=== PATIENT | male | born 1950 | race Caucasian/White ===

== ENCOUNTER 2018-02-07 16:00 | Outpatient (RCR) | payer MEDICARE, OTHER ==
--- NOTE | 2017-12-24 15:02 | PT INITIAL EVALUATION ---
MEDICAL DIAGNOSIS: Status post left knee replacement TREATMENT DIAGNOSIS: Same, altered gait DATE OF ONSET: 12/20/17 SUBJECTIVE: Meng Morocho presents to physical therapy status post L knee replacement on December 20, 2017. He reports that he had his hip replaced 3 years ago without any difficulties following. He reports that he has been performing the exercises that he had received from the PT's during his stay in the hospital. He reports that his pain reduces from 5/10 to 3/10 following his exercises. He reports that he has been changing the dressing as needed. He reports that he has one step to get into or out of his house and is currently not having any difficulties with that step. Furthermore, he reports that he currently has pain surrounding the posterior capsule and rates it to be 5/10. He reports that he has minimal discharge from the incision. Pain location is L knee: posterior capsule and described as achy. Pain scale is 5 on a ten point pain scale. Pain is worse with knee flexion and extension ROM and better with elevation with ice. REHAB PROBLEM LIST: Increased Pain Decreased ROM Decreased Strength Decreased Endurance Decreased Balance Decreased Function Decreased ADL's Decreased Mobility Decreased Gait PREVIOUS MEDICAL HISTORY: See EMR OCCUPATION: Retired OBJECTIVE: Incision healing well along with minimal to no discharge with zero signs or symptoms of infection Posture: He demonstrates minimal posture impairments with forward head, B rounded shoulders, increased thoracic kyphosis, and decreased lumbar lordosis. ROM: PROM-AAROM: L knee extension: 5 degrees from 0. L knee flexion: 65 degrees. He demonstrated empty end feels in either direction Strength: Able to initiate quad; however, he demonstrates a significant SLR lag of 15 degrees Palpation: TTP: L knee posterior capsule Mobility: Modified Independent Gait: With FWW, he demonstrated the following mechanics: decreased R step length, demonstrated step to gait with R LE and step through gait with L LE, decreased velocity, decreased B pelvic rotation, and increased stance or double limb stance during the stance phase of gait. Balance: Will assess in the future ASSESSMENT: Meng will benefit from skilled physical therapy addressing the listed impairments to improve function and return to prior level of function. Short Term Goals 1-2 weeks: Pt will demonstrate improvements with L quad contraction to improve function and QOL. 3 weeks: Pt will demonstrate 0-125 degrees of L knee extension to flexion PROM- AROM to improve function and QOL. 6 weeks: Pt will demonstrate improvements with B hip abduction, extension, and flexion strength from baseline to 4+/5 or greater to improve function and QOL. 6 weeks: Pt will demonstrate normal gait mechanics without any AD to improve function and QOL. 6 weeks: Pt will be independent with his home exercise program. Patient's Goals improve motion, walking, and getting back to what he was doing PLAN: Patient to be seen for Manual Therapy/STM/MET Strengthening/condition Range of Motion Spinal Stabilization Work Hardening/Cond Stretching Neuromuscular Re-ed Closed Chain Program Posture/Body mechanics Gait Trg/Balance Trg Home Exercise Program Therapeutic Activities 3x/Week for 6 Weeks If you have any questions, comments, or concerns about this report or plan, please contact me at . Thank you, Oren Jiang, PT, DPT MAURICIOD
--- NOTE | 2018-01-17 17:52 | PT PLAN OF CARE ---
Physician: David Jarvis MD Patient is being seen: 3x/week Therapist: Oren Jiang, PT, DPT Medical Diagnosis: Status post left knee replacement Treatment Diagnosis: Same, altered gait Date of Onset: 12/20/17 Date of Initial Evaluation: 12/23/17 Date patient was last seen: 01/17/18 Number of treatments: 10 Number of cancellations/No shows: 1 INTERVENTIONS: Manual Therapy/STM/MET Strengthening/condition Range of Motion Spinal Stabilization Work Hardening/Cond Stretching Neuromuscular Re-ed Closed Chain Program Posture/Body mechanics Gait Trg/Balance Trg Home Exercise Program Therapeutic Activities GOALS: 1-2 weeks: Pt will demonstrate improvements with L quad contraction to improve function and QOL. Progressing well 3 weeks: Pt will demonstrate 0-125 degrees of L knee extension to flexion PROM- AROM to improve function and QOL. Progressing well 6 weeks: Pt will demonstrate improvements with B hip abduction, extension, and flexion strength from baseline to 4+/5 or greater to improve function and QOL. NM; have not addressed right now will address following full AROM of L knee flexion and extension 6 weeks: Pt will demonstrate normal gait mechanics without any AD to improve function and QOL. MET 6 weeks: Pt will be independent with his home exercise program. Progressing PATIENT'S GOAL: improve motion, walking, and getting back to what he was doing Status of Patient's Goals: Progressing Patient Compliance: Good Prognosis: Excellent Reasons for continuing therapy: This is a progress note for Meng Morocho. He reports that he is doing well. He reports that he is doing his L knee flexion and extension exercises 3-4 times per day. He reports that he is able to perform a full revolution around his bike. He rates his pain to be 2/10. He reports that he feels like the swelling is getting much better along with his walking has improved a lot over the last few weeks. He reports that he has been icing and elevating as often as possible. He continues to progress with his L knee extension and flexion PROM-AROM from baseline to 0-110 degrees PROM and 0-1 -108 degrees AROM, improved quad contraction; however he continues to have 5 degrees of lag, improved gait mechanics with no AD (improved foot clearance, increased velocity, normal B step lengths; however, he continues to lack push off and increased knee flexion during the gait cycle), fully healed incision, increased incisional mobility, improved patella mobility; however, it continues to be moderately limited in the superior and inferior glides and normal accessory mobility of medial to/from lateral, and significant reduction in swelling. We will continue to improve L knee extension and flexion ROM, improve quad strength, reduce swelling, improve gait mechanics, and return to prior level of function. Posture: He demonstrates minimal posture impairments with forward head, B rounded shoulders, increased thoracic kyphosis, and decreased lumbar lordosis. ROM: PROM-AAROM: L knee extension: 0. L knee flexion: 110 degrees. He demonstrated empty end feels in either direction Strength: SLR lag of 5 degrees Special Tests: Mobility: Independent If you have any questions, please contact me at [phone]. Thank you, Oren Jiang, PT, DPT MTDD
[~2018-02-07 16:00] MED LIST: AMIO400T10 PO; ASPI-1471 PO; CAR3.125 PO; ENAL-1 PO; FURO-47 PO; HYDR-385 PO; IBUP200C71 PO; POTA20PA10 PO; PRAV40TA78 PO; SPIR25TA76 PO; WARF-1 PO; WARF5TAB23 PO
--- NOTE | 2018-02-07 16:50 | PT PLAN OF CARE ---
Physician: David Jarvis MD Patient is being seen: 3x/week Therapist: Oren Jiang, PT, DPT Medical Diagnosis: Status post left knee replacement Treatment Diagnosis: Same, altered gait Date of Onset: 12/20/17 Date of Initial Evaluation: 12/23/17 Date patient was last seen: 02/07/18 Number of treatments: 16 Number of cancellations/No shows: 2 INTERVENTIONS: Manual Therapy/STM/MET Strengthening/condition Range of Motion Spinal Stabilization Work Hardening/Cond Stretching Neuromuscular Re-ed Closed Chain Program Posture/Body mechanics Gait Trg/Balance Trg Home Exercise Program Therapeutic Activities GOALS: 1-2 weeks: Pt will demonstrate improvements with L quad contraction to improve function and QOL. MET 3 weeks: Pt will demonstrate 0-125 degrees of L knee extension to flexion PROM- AROM to improve function and QOL. MET 6 weeks: Pt will demonstrate improvements with B hip abduction, extension, and flexion strength from baseline to 4+/5 or greater to improve function and QOL. MET 6 weeks: Pt will demonstrate normal gait mechanics without any AD to improve function and QOL. MET 6 weeks: Pt will be independent with his home exercise program. MET PATIENT'S GOAL: improve motion, walking, and getting back to what he was doing Status of Patient's Goals: [g OPPT.GOALS] Patient Compliance: [g PT.GFPNA] Prognosis: Excellent Reasons for continuing therapy: Reasons for continuing therapy: This is a discharge note for Meng Morocho. He reports that he is doing well. He reports that he is independent within his home exercise program. He denies any L knee pain. He reports that the L knee continues to be stiff and sore in the morning and gets better as the day progresses. He reports that he feels like his walking is back to normal. He has progressed well within PT with the following improvements: increased L knee extension and flexion AROM (0-128 degrees), increased quad contraction (zero quad lag), return to normal with gait mechanics, independence within his HEP, decreased swelling, improved endurance, improved accessory mobility of the incision, and improved balance strategies in all conditions. He has met all of his goals. As a result, he will be discharged from PT to [facility]. Posture: He demonstrates minimal posture impairments with forward head, B rounded shoulders, increased thoracic kyphosis, and decreased lumbar lordosis. ROM: PROM-AAROM: L knee extension: 0. L knee flexion: 128 degrees. He demonstrated empty end feels in either direction Strength: SLR lag of 0 degrees, B LE's: 4+/5 Mobility: Independent If you have any questions, please contact me at [phone]. Thank you, Oren Jiang, PT, DPT MTDD
== END 2018-02-07 18:00 | disposition home or self-care (01) ==
LOC: PT 16:00
PROVIDERS: ATTEND Orthopaedic Surgery Adult Reconstructive Orthopaedic Surgery
DX: Z47.1 Aftercare following joint replacement surgery (principal); Z96.652 Presence of left artificial knee joint; R26.89 Other abnormalities of gait and mobility; M25.562 Pain in left knee; Z96.649 Presence of unspecified artificial hip joint
CPT/HCPCS: 97162

== ENCOUNTER 2018-05-09 15:00 | Outpatient (RCR) | payer MEDICARE, OTHER ==
[2018-02-18 16:01] VITALS: BP 102/74
[2018-02-18 16:02] VITALS: BP 112/74
--- NOTE | 2018-02-18 16:30 | CARDIAC REHAB PLAN OF CARE ---
Physician: Raudel Hartmann MD Patient is being seen: Pam Bates Medical Diagnosis: STEMI; A-frib; VSD; CHF (Systolic) Date of Initial Evaluation: 02/18/2018 INTERVENTIONS: SHORT TERM GOALS Short Term Goals Due Date: 03/20/18 Short Term Goals: Patient comes to cardiac rehab having experienced a STEMI in 2013. Following his cardiac event he had a VSD that was fixed with open heart surgery. In 2015 he was fitted with a pacemaker/defibrillator. He presently has atrial fibrillation and systolic chronic heart failure. Reports also state him having CKD (stage III) and COPD which do not appear to limit his physical activity or role in this program. Patient is currently exercising on his own, progressing towards a total of 2 miles throughout the day (in 5 minute bouts) on his stationary bike. Our goal for the next month is to encourage this at-home physical activity while adding additional activity in our supervised setting. In the next month it is our goal to increase exercise tolerance first by increasing duration of continuous movement. Currently, he exercises for a continuous 5 minutes at a time. We hope to increase this to a total of at least 25 continuous minutes on the airdyne bike, 10 on the treadmill, and 7 on the elliptical. During exercise his heart rate is irregular and difficult to maintain in a certain range (dependent on the a-fib). Ideally he would aim his HR between 95- 100bpm to start. However, a better way to identify intensity will be by using the RPE scale. He should exercise at an RPE between 3-4 as long as his SPO2 remains above 88% We also hope to improve muscular strength by progressing from the current 6# weights to 8# weights. Short Term Goals Met: Short Term Goals Not Met Due To: DETENTION GOALS Retirement Goal Due Date: 04/20/18 Refrigerating Technician Goals: Over the next two months, half-way goals include achieving the recommended 150 minutes/week of moderate intensity continuous exercise at cardiac rehab. By the end of the second month he should be maintaining an RPE between 3-5 with SPO2 above 88%. Along with duration of exercise, we also hope to increase intensity. This will be done by increasing incline on the treadmill (currently 1.5%) with a goal of 5%, RPM's on the airdyne (currently 35rpm) with a goal of 50rpm, and level on the elliptical (currently L1) with a goal of L3. Retirement Goals Met: Retirement Goals Not Met Due To: PATIENT'S GOALS Patient Goals Due Date: 03/20/18 Patient Goals: Through this program the patient hopes to increase overall strength. This includes muscular strength, as well as cardiovascular strength. Currently, his LVEF is 45% and ideally it should be >55%. He would also like to improve his stamina/cardiorespiratory fitness level. Lastly, he would like to gain knowledge/information on how to properly assess the safety of exercise at home and how to gauge where his limitations in respects to cardiovascular safety. Patient Goals Met: Patient Goals Not Met Due To: Cardiac Rehabilitation Plan of Care Comment: Throughout his program we will provide a multi-dimensional care plan for the patient including education, behavior change towards dietary and physical activity, and social support/ motivation. During the program we will monitor the patient via blood pressure, HR, SPO2, and ECG telemetry to ensure safety during exercise. We will use this information to help create an individualized exercise prescription that addresses the patient's needs and goals. We will provide positive encouragement and motivation, and provide guidance to exercise progression so that the patient may receive the best experience during his time in the program. Progression will be a lange factor for this patient, and he has much room for growth in aspects to physical activity and exercise. Little progressions will be made each exercise sessions (whether it be additional time or increased intensity). It is our hopes that small steps will add up in the end to significant changes. ABIGAIL
[2018-02-21 15:19] VITALS: BP 134/76
[2018-02-21 15:20] VITALS: BP 122/82
[2018-02-24 15:19] VITALS: BP 116/70
[2018-02-24 15:20] VITALS: BP 110/76
[2018-03-03 16:34] VITALS: BP_SYST 102; BP_SYST 122; BP_DIAS 64; BP_DIAS 84
[2018-03-07 16:54] VITALS: BP 102/78
[2018-03-07 16:55] VITALS: BP 118/72
[2018-03-10 15:11] VITALS: BP 110/70
[2018-03-10 15:12] VITALS: BP 102/74
[2018-03-14 16:40] VITALS: BP 110/66
[2018-03-14 16:41] VITALS: BP 108/64
[2018-03-17 16:39] VITALS: BP 104/68
[2018-03-17 17:21] VITALS: BP 104/64
[2018-03-19 17:24] VITALS: BP 116/78
[2018-03-19 17:25] VITALS: BP 120/70
--- NOTE | 2018-03-24 12:42 | CARDIAC REHAB PLAN OF CARE ---
Physician: Raudel Hartmann MD Patient is being seen: Pam Bates Medical Diagnosis: STEMI; A-fib; VSD; PM/Defib Date of Initial Evaluation: 02/18/18 Date patient was last seen: 03/19/18 Number of treatments: 10 INTERVENTIONS: SHORT TERM GOALS Short Term Goals Due Date: 04/24/18 Short Term Goals: Patient comes to cardiac rehab having experienced a STEMI in 2013. Following his cardiac event he had a VSD that was fixed with open heart surgery. In 2015 he was fitted with a pacemaker/defibrillator. He presently has atrial fibrillation and systolic chronic heart failure. Reports also state him having CKD (stage III) and COPD which do not appear to limit his physical activity or role in this program. Over the next month our goal will be to continue progressing exercise intensity (aiming for at least 3.5METs on the bike). He will return to using the airdyne bike along side with either the elliptical or treadmill--not the NuStep. He will continue with the same HR range pending the a-fib interference. But will aim for an RPE between 3-4 (as long as his SPO2 remains above 88%). Over the next month it will also be a goal to increase strength training weights to 8lbs. Short Term Goals Met: Patient has met all of the prior mentioned goals. He is currently exercising for 40 total minutes, 30 of which are consecutive on the airdyne bike. He maintains his HR between 90-110bpm on average (variable due to the a-fib).His SPO2 on average keeps at 91% and he has increased his strength training weights from 6lbs to 7lbs.He has maintained his leisure time physical activity at home. Short Term Goals Not Met Due To: Patient has not met the goal of maintaining and RPE between 3-4.He has also for unknown reasons started using the NuStep instead of the treadmill or elliptical. ROTOR PILOT GOALS Fdc Goal Due Date: 04/24/18 Rad Tech Goals: Over the next two months, nursing home goals include achieving the recommended 150 minutes/week of moderate intensity continuous exercise at cardiac rehab. By the end of the second month he should be maintaining an RPE between 3-5 with SPO2 above 88%. Along with duration of exercise, we also hope to increase intensity. This will be done by increasing incline on the treadmill (currently 1.5%) with a goal of 5%, RPM's on the airdyne (currently 35rpm) with a goal of 50rpm, and level on the elliptical (currently L1) with a goal of L3. Fdc Goals Met: Fdc Goals Not Met Due To: PATIENT'S GOALS Patient Goals Due Date: 04/24/18 Patient Goals: Through this program the patient hopes to increase overall strength. This includes muscular strength, as well as cardiovascular strength. Currently, his LVEF is 45% and ideally it should be >55%. He would also like to improve his stamina/cardiorespiratory fitness level. Lastly, he would like to gain knowledge/information on how to properly assess the safety of exercise at home and how to gauge where his limitations in respects to cardiovascular safety. Patient Goals Met: None of the prior mentioned goals have been met. Patient Goals Not Met Due To: No information currently on progression of personal patient goals. Cardiac Rehabilitation Plan of Care Comment: In the next month it will be our goal as a cardiac rehab staff to encourage the patient to increase his exercise intensity. This will include exercise limited to the treadmill, airdyne bike, elliptical, and laps on the track. He will aim for a MET level of at least 3.5 and an RPE between 3-4. We will continue to monitor his HR, BP , ECG, and SPO2 to ensure his safety through exercise. We will further use this information to help individualize his exercise program to his capabilities and personal goals. Lastly, we will help educate him on how to identity exercise safety and intensity on his own for use outside of the rehab facility. ABIGAIL
[2018-04-02 16:00] VITALS: BP 118/80
[2018-04-02 16:01] VITALS: BP 114/80
[2018-04-07 16:24] VITALS: BP_SYST 110; BP_SYST 112; BP_DIAS 72; BP_DIAS 80
[2018-04-16 16:24] VITALS: BP 104/60
[2018-04-16 16:25] VITALS: BP 92/62
[2018-04-18 15:56] VITALS: BP_SYST 106; BP_SYST 110; BP_DIAS 76; BP_DIAS 78
[2018-04-18 16:06] VITALS: BP 106/78
[2018-04-21 16:33] VITALS: BP_SYST 128; BP_SYST 96; BP_DIAS 68; BP_DIAS 82
[2018-04-25 17:06] VITALS: BP_SYST 104; BP_SYST 98; BP_DIAS 64; BP_DIAS 72
[2018-04-28 16:24] VITALS: BP 104/70
[2018-04-28 16:25] VITALS: BP 102/64
--- NOTE | 2018-04-29 12:32 | CARDIAC REHAB PLAN OF CARE ---
Physician: Raudel Hartmann MD Patient is being seen: Pam Bates Medical Diagnosis: STEMI; Afib; VSD; PM/Defib Date of Onset: 2013 (STEMI) Date of Initial Evaluation: 02/18/18 Date patient was last seen: 04/28/18 Number of treatments: 18 Number of cancellations/No Shows: 10 INTERVENTIONS: SHORT TERM GOALS Short Term Goals Due Date: 05/30/18 Short Term Goals: Patient comes to cardiac rehab having experienced a STEMI in 2013. Following his cardiac event he had a VSD that was fixed with open heart surgery. In 2015 he was fitted with a pacemaker/defibrillator. He presently has atrial fibrillation and systolic chronic heart failure. Reports also state him having CKD (stage III) and COPD which do not appear to limit his physical activity or role in this program. Over the next month the patient will continue to exercise using the [place] bike and the NuStep. We will first encourage an increase in total exercise duration. We would like to have him on average performing 45 minutes each session, with no less than 40 minutes being the minimum. Once this is instilled we will continue to encourage increasing exercise intensity. Currently he is exercising at 3.4 METs and we would like to see this increase towards 4.5 METs by the end of the next month. This is all pending normal hemodynamic responses during exercise and sans injury. Short Term Goals Met: The patient has increased his exercise intensity to on average 3-3.4. This is a drastic increase from his previous average of 2.1. Short Term Goals Not Met Due To: Patient has declined going back to the treadmill or elliptical and prefers to use the NuStep. We will continue on this path so as to encourage as much exercise as possible. He has no increased total duration of exercise and actually has some variation in his duration between 30-40 minutes depending on the day. He has not increased his weights as remains at 7lbs. ASSISTANT DEPARTMENT MANAGER GOALS Halfway Goal Due Date: 05/30/18 Halfway Goals: Over the next two months, intermediate project manager goals include achieving the recommended 150 minutes/week of moderate intensity continuous exercise at cardiac rehab. By the end of the next month we hope to encourage the increase in duration as well as an increase in intensity via MET level. On the bike he is currently exercising at 3.4 METs at level 3.5. On the NuStep he is exercising at 3.2 METs at level 4. We hope to encourage a MET level on average of 4.5 by the end. With an increase in both levels on the bike and NuStep. It is also a goal to instill an understanding in the patient to importance of consistency and progression with exercise so that he may create a personal investment in his overall health and wellbeing. Health Information Specialist Goals Met: Health Information Specialist Goals Not Met Due To: The patient has not been able to achieve 50 minutes/session on average in order to reach the 150 min/week. PATIENT'S GOALS Patient Goals Due Date: 05/30/18 Patient Goals: Through this program the patient hopes to increase overall strength. This includes muscular strength, as well as cardiovascular strength. Currently, his LVEF is 45% and ideally it should be >55%. He would also like to improve his stamina/cardiorespiratory fitness level. Lastely, he would like to gain knowledge/information on how to properly assess the safety of exercise at home and how to gauge where his limitations in respects to cardiovascular safety. Patient Goals Met: Over the past month is has become apparent that the patient understand the benefit of exercise progression as we have seen in both time and intensity increases. Patient Goals Not Met Due To: The patient appears to be a little overly cautious about safety when exercising--not wanting to push himself too hard and not understanding what normal responses and sensations are to exercise. Cardiac Rehabilitation Plan of Care Comment: During the next month we will continue to monitor and educate the patient during his rehab sessions. We will monitor his HR, BP, SPO2, and ECG to ensure safety and proper exercise intensity. We will use this information to continuously develop his individualized exercise prescription. We will also print off a revised edition of this careplan and provide it to the patient so that he may feel involved in the process and take some responsibility. In conjunction with this we will continue to educate the patient so that he may have a full understanding of exercise and heart healthy by the time he leaves the phase II program. ABIGAIL
[2018-05-07 15:26] VITALS: BP 114/76
[2018-05-07 15:27] VITALS: BP 110/66
[~2018-05-09 15:00] MED LIST changes: +IBUP-136 PO; -IBUP200C71 PO; -POTA20PA10 PO; +POTA20PA31 PO
[2018-05-09 17:04] VITALS: BP 100/78
[2018-05-09 17:05] VITALS: BP 96/62
[2018-05-19 15:26] VITALS: BP 104/64
[2018-05-19 15:27] VITALS: BP 104/62
== END 2018-05-19 ==
LOC: CARD 15:00
PROVIDERS: ATTEND Internal Medicine Cardiovascular Disease
DX: I25.5 Ischemic cardiomyopathy (principal); I48.1 Persistent atrial fibrillation; I25.10 Atherosclerotic heart disease of native coronary artery without angina pectoris; I50.22 Chronic systolic (congestive) heart failure; N18.3 Chronic kidney disease, stage 3 (moderate); R06.02 Shortness of breath; I25.2 Old myocardial infarction; Z95.0 Presence of cardiac pacemaker; J44.9 Chronic obstructive pulmonary disease, unspecified
CPT/HCPCS: 93798

== ENCOUNTER 2018-06-30 14:00 | Outpatient (RCR) | payer MEDICARE, OTHER ==
[2018-05-21 15:30] VITALS: BP 102/64
[2018-05-21 15:37] VITALS: BP 106/60
[2018-05-26 16:52] VITALS: BP_SYST 100; BP_SYST 112; BP_DIAS 64; BP_DIAS 82
[2018-05-28 15:40] VITALS: BP 120/70
[2018-05-28 15:41] VITALS: BP 104/70
[2018-05-30 15:41] VITALS: BP 108/72
[2018-05-30 15:42] VITALS: BP 100/68
[2018-06-02 16:22] VITALS: BP 110/62
[2018-06-02 16:23] VITALS: BP 100/64
[2018-06-04 15:35] VITALS: BP 120/84
[2018-06-04 15:36] VITALS: BP 100/80
--- NOTE | 2018-06-09 13:39 | CARDIAC REHAB PLAN OF CARE ---
Physician: Raudel Hartmann MD Patient is being seen: Pam Bates Medical Diagnosis: STEMI; Afib; VSD; PM/Defib Date of Onset: 2013 (STEMI) Date of Initial Evaluation: 02/18/18 Date patient was last seen: 06/04/18 Number of treatments: 27 Number of cancellations/No Shows: 18 INTERVENTIONS: SHORT TERM GOALS Short Term Goals Due Date: 07/10/18 Short Term Goals: Patient comes to cardiac rehab having experienced a STEMI in 2013. Following his event he had a VSD that was fixed via open heart surgery. In 2015 he was fitted with a pacemaker/defibrillator. He presently has atrial fibrillation and systolic chronic heart failure. Reports also state him having CKD (Stage III) and COPD which do not appear to limit his physical activity or role in this program. The patient currently have approximately 3 weeks left of rehabilitation. Over the next three weeks our primary goal will be to increase exercise intensity. He is currently exercising at 3.0-3.5 METs on average, showing now increase from last month. Our goal will to have the patient exercising on average at 4.0 METs. He will continue to aim for 40+ minutes of continuous exercise 3 days/week to maintain his exercise consistency. For the last month his new THR will be 100-120bpm pending hemodynamic response is within normal limits. Short Term Goals Met: Patient did not meet any of his previous goals. Short Term Goals Not Met Due To: While the patient has been more consistent with exercise attendence and overall duration adherence, he has not increased his exercise intensity over the past month. [facility] GOALS [facility] Goal Due Date: 07/10/18 [facility] Goals: Over his last month of rehab is it our goal to increase the patient's overall intensity via both HR and METs during exercise. Currently he is exercising between 86-102bpm, his new THR will be between 100- 120bpm pending hemodynamic response is WNL. For METs, he is currently exercising between 3.0-3.5 METs on average and we will aim by the end of his rehab sessions to be at 4.0+ on average. [facility] Goals Met: Patient does appear to value the consistency in exercise as he has been attending his rehab sessions more regularly. [facility] Goals Not Met Due To: The patient has failed to increase his overall intensity while exercising. PATIENT'S GOALS Patient Goals Due Date: 07/10/18 Patient Goals: Throughout the program the patient hopes to increase overall strength. This includes muscular strength as well as cardiovascular strength. Currently, his LVEF is 45% and ideally is should be >55%. He would also like to improve his stamina/cardiorespiratory fitness level. Lastly, he would like to gain knowledge/information on how to progresly assess the safety of exercise at home and how to gauge where his limitations are. Patient Goals Met: Patient has reported positive feedback in regards to strength, stamina, and overall energy levels. Patient Goals Not Met Due To: Unaware of any improvement in his LVEF. Patient does not appear to have a solid understanding in exercise awareness as he does not know how hard he is working or understand what intensity to push himself to. Cardiac Rehabilitation Plan of Care Comment: Over the patient's last month of rehab it is our primary goal to increase his overall exercise intensity and ability to understand the importance of increasing overall intensity and have the patient gain knowledge on how to successfully gauge his intensity while exercise. While developing these goals we will continue to monitor the patient before, during, and after exercise via BP, HR, SPO2, and ECG telemetry to ensure his safety. Over the next month we will also begin the conversation of whether the patient would like to attend phase III rehab or not. If not, we will work on developing his take home exercise prescription prior to his discharge. ABIGAIL
[2018-06-09 17:01] VITALS: BP 104/78
[2018-06-09 17:04] VITALS: BP 100/70
[2018-06-11 16:54] VITALS: BP 110/70
[2018-06-11 16:55] VITALS: BP 92/68
[2018-06-13 15:39] VITALS: BP_SYST 102; BP_SYST 110; BP_DIAS 66; BP_DIAS 68
[2018-06-18 15:17] VITALS: BP 108/72
[2018-06-18 15:18] VITALS: BP 110/70
[2018-06-20 17:31] VITALS: BP 110/80
[2018-06-20 17:32] VITALS: BP 98/70
[2018-06-23 16:27] VITALS: BP 100/78
[2018-06-23 16:28] VITALS: BP 110/78
[2018-06-25 17:08] VITALS: BP 110/78
[2018-06-25 17:09] VITALS: BP 92/62
[2018-06-27 16:12] VITALS: BP_SYST 108; BP_SYST 98; BP_DIAS 70; BP_DIAS 78
[2018-06-30 15:57] VITALS: BP 108/60
[2018-06-30 15:58] VITALS: BP 100/70
== END 2018-06-30 18:00 | disposition home or self-care (01) ==
LOC: CARD 14:00
PROVIDERS: ATTEND Internal Medicine Cardiovascular Disease
DX: I25.5 Ischemic cardiomyopathy (principal); I48.1 Persistent atrial fibrillation; I25.10 Atherosclerotic heart disease of native coronary artery without angina pectoris; I50.22 Chronic systolic (congestive) heart failure; N18.3 Chronic kidney disease, stage 3 (moderate); R06.02 Shortness of breath; I25.2 Old myocardial infarction; Z95.0 Presence of cardiac pacemaker; J44.9 Chronic obstructive pulmonary disease, unspecified
CPT/HCPCS: 93798